=== PATIENT | male | born 1985 | race Caucasian/White ===

== ENCOUNTER 2016-07-22 12:07 | Emergency (ER) | payer MEDICARE | END 2016-07-22 14:15 | disposition home or self-care (01) | LOC: ER1 12:07 | DX: G40.409 Other generalized epilepsy and epileptic syndromes, not intractable, without status epilepticus (principal) | CPT/HCPCS: 82962; 96372; 99284; J1885 ==

== ENCOUNTER 2016-08-04 20:45 | Emergency (ER) | payer MEDICARE | END 2016-08-04 21:51 | disposition left against medical advice (07) | LOC: ER1 20:45 | DX: Z53.21 Procedure and treatment not carried out due to patient leaving prior to being seen by health care provider (principal) ==

== ENCOUNTER 2020-09-12 21:40 | Emergency (ER) | payer OTHER ==
[~2020-09-12 21:40] MED LIST: AUGMENTIN 875-1 EACH PO
== END 2020-09-13 01:00 | disposition home or self-care (01) ==
LOC: ER1 21:40
DX: M54.42 Lumbago with sciatica, left side (principal); F17.210 Nicotine dependence, cigarettes, uncomplicated
CPT/HCPCS: 99283

== ENCOUNTER → 2020-09-18 | Outpatient (CLI) | payer OTHER ==
[~2020-09-18] MED LIST changes: +CYCLOBENZAPRINE5 MG PO; +HYDROCODON-ACE1 EAC4 PO; +IBUPROFEN800 MG PO
== END ==
LOC: RAD 13:54
DX: M54.5 Low back pain (principal); M51.37 Other intervertebral disc degeneration, lumbosacral region
CPT/HCPCS: 72110

== ENCOUNTER 2020-09-20 08:00 | Emergency (ER) | payer OTHER ==
[~2020-09-20 08:00] MED LIST changes: -CYCLOBENZAPRINE5 MG PO; -HYDROCODON-ACE1 EAC4 PO; -IBUPROFEN800 MG PO
[2020-09-20 08:41] LABS: HEMOGLOBIN 15.7 gm/dl (14.0-17.5); RED BLOOD COUNT 4.86 M/UL (4.20-5.50); WHITE BLOOD COUNT 16.7 K/UL (4.5-11.0)
[2020-09-20 09:09] LABS: BUN/CREATININE RATIO 22 (0-10)
[2020-09-20] MEDS ORDERED: CYCLOBENZAPRINE5 MG PO (12:20)
[2020-09-20] MEDS ORDERED: IBUPROFEN800 MG PO (12:20)
[2020-09-20] MEDS ORDERED: HYDROCODON-ACE1 EAC4 PO (12:20)
== END 2020-09-20 12:45 | disposition home or self-care (01) ==
LOC: ER1 08:00
PROVIDERS: Emergency Medicine
DX: M54.16 Radiculopathy, lumbar region (principal); R56.9 Unspecified convulsions; F17.200 Nicotine dependence, unspecified, uncomplicated
CPT/HCPCS: 72148; 80053; 85025; 96374; 96375; 99284; J2270; J2405

== ENCOUNTER 2021-04-11 15:32 | Emergency (ER) | payer OTHER ==
[~2021-04-11 15:32] MED LIST changes: +CYCLOBENZAPRINE5 MG PO; +HYDROCODON-ACE1 EAC4 PO; +IBUPROFEN800 MG PO
[2021-04-11 16:49] LABS: HEMOGLOBIN 15.7 gm/dl (14.0-17.5); RED BLOOD COUNT 5.15 M/UL (4.20-5.50); WHITE BLOOD COUNT 18.1 K/UL (4.5-11.0)
[2021-04-11 17:08] LABS: BUN/CREATININE RATIO 8 (0-10)
[2021-04-11] MEDS ORDERED: AUGMENTIN 875-1 EACH PO (18:28)
[2021-04-11] MEDS ORDERED: IBUPROFEN600 MG PO (18:28)
== END 2021-04-11 18:44 | disposition home or self-care (01) ==
LOC: ER1 15:32
PROVIDERS: Physician Assistant Medical
DX: M27.3 Alveolitis of jaws (principal); R59.0 Localized enlarged lymph nodes; D72.829 Elevated white blood cell count, unspecified; F17.210 Nicotine dependence, cigarettes, uncomplicated
CPT/HCPCS: 70486; 80053; 85025; 99284